=== PATIENT | female | born 1955 | race Caucasian/White ===

== ENCOUNTER 2019-11-05 16:10 | Inpatient (IN) | payer MEDICARE ==
[~2019-11-05] VITALS: Ht 162.6 cm; Wt 88.6 kg
[2019-11-05] MEDS ORDERED: AZULFIDINE500 MG PO (16:19)
[2019-11-05] MEDS ORDERED: FOLATE0.4 MG PO (16:20)
[2019-11-05] MEDS ORDERED: HYDROXYCHLOROQ200 MG PO (16:20)
[2019-11-05 17:59] LABS: BASOPHILS 0.2 % (0-2); EOSINOPHILS 0.7 % (0-7); HEMATOCRIT 39.3 % (36.0-48.0); HEMOGLOBIN 12.3 g/dL (12-16); IMMATURE GRANULOCYTES 0.3 % (0-5); LYMPHOCYTES 9.3 % (15-50); MCH 29.6 pg (26.0-34.0); MCHC 31.3 g/dL (31.0-37.0); MCV 94.7 fL (80.0-100.0); MEAN PLATELET VOLUME 10.8 fL (7.4-10.4); MONOCYTES 4.9 % (2-11); NEUTROPHILS 84.6 % (40-80); PLATELET COUNT 216 10x3/uL (130-400); RBC 4.15 10x6/uL (4.00-5.40); RDW 14.1 % (11.5-14.5); WBC 12.5 10x3/uL (4.8-10.8)
--- NOTE | 2019-11-05 18:02 | NUR ---
PT MOVED WITHOUT DIFFICULTY, LEFT ARM STABILIZED WITH BLANKETS, PAIN MED AND NAUSEA MEDS GIVEN PT TOLERATED WELL.
[2019-11-05 18:05] LABS: INR 0.99 (0.85-1.17)
[2019-11-05 18:08] LABS: ANION GAP 13.2 mmol/L (8-16); CALCIUM 8.9 mg/dL (8.5-10.1); CARBON DIOXIDE 24.7 mmol/L (21.0-32.0); CREATININE - SERUM 1.2 mg/dL (0.6-1.3); POTASSIUM - SERUM 3.9 mmol/L (3.5-5.1)
[2019-11-05 18:14] LABS: ALBUMIN 3.6 g/dL (3.4-5.0); BILIRUBIN - TOTAL 0.25 mg/dL (0.2-1.3); PROTEIN - SERUM 7.4 g/dL (6.4-8.2)
[2019-11-05 20:07] VITALS: BP 142/81
--- NOTE | 2019-11-05 21:53 | NUR ---
RECEIVED TO ROOM VIA [facility] FROM ER. ALERT ORIETED. SPLINT INTACT TO LEFT ARM WITH LO WRAP INTACT. RIGHT ARM UP ON PILLOW.. ORIENTED TO ROOM. CL IN REACH
[2019-11-06] VITALS (8 sets, daily range): BP systolic 137–183; BP diastolic 64–88; Ht 162.6 cm; Wt 88.6 kg
--- NOTE | 2019-11-06 03:55 | NUR ---
I have reviewed this patient and I concur with the Shift Assessment completed by the Licensed Practical Nurse today this shift.
[2019-11-06 06:15] LABS: BASOPHILS 0.1 % (0-2); EOSINOPHILS 0.4 % (0-7); HEMOGLOBIN 10.9 g/dL (12-16); IMMATURE GRANULOCYTES 0.2 % (0-5); LYMPHOCYTES 26.9 % (15-50); MCH 29.4 pg (26.0-34.0); MCHC 31.1 g/dL (31.0-37.0); MCV 94.3 fL (80.0-100.0); MEAN PLATELET VOLUME 10.6 fL (7.4-10.4); MONOCYTES 8.1 % (2-11); NEUTROPHILS 64.3 % (40-80); PLATELET COUNT 188 10x3/uL (130-400); RBC 3.71 10x6/uL (4.00-5.40); RDW 14.2 % (11.5-14.5)
[2019-11-06 06:21] LABS: WBC 8.1 10x3/uL (4.8-10.8)
[2019-11-06 06:30] LABS: INR 1.09 (0.85-1.17)
[2019-11-06 07:02] LABS: ANION GAP 12.8 mmol/L (8-16); CALCIUM 8.2 mg/dL (8.5-10.1); CARBON DIOXIDE 24.3 mmol/L (21.0-32.0); POTASSIUM - SERUM 4.1 mmol/L (3.5-5.1)
--- NOTE | 2019-11-06 07:59 | NUR ---
RESTING IN BED WITH EYES OPEN, ALERT AND ORIENTED. STATES SOME PAIN IS BECOMING TO COME BACK. IV LOCATED TO RIGHT HAND RUNNING NS @ 75ML. CURRENTLY RCVING 2L VIA NC. NO CURRENT S/S OF DISTRESS, WILL CONT TO MONITOR.
--- NOTE | 2019-11-06 15:11 | NUR ---
PATIENT REPREPPED AND DRAPE FOR SECOND HALF OF CASE ORIF OF WRIST
--- NOTE | 2019-11-06 22:30 | NUR ---
IV TO LFA INFILTRATED. DC'D WITH TIP INTACT. RESTARTED IV TO RIGHT HAND X 1 ATTEMP WITH 22G. TOLERATED WELL. SLING INTACT TO RIGHT ARM. DRESSING TO RIGHT SHOULDER INTACT AND CLEAN. LO WRAP TO LEFT WRIST INTACT WITHOUT DRAINAGE NOTED. CL IN REACH
[2019-11-07] VITALS (7 sets, daily range): BP systolic 141–162; BP diastolic 66–105
--- NOTE | 2019-11-07 01:45 | NUR ---
I have reviewed this patient and I concur with the Shift Assessment completed by the Licensed Practical Nurse today this shift.
[2019-11-07 03:54] LABS: BILIRUBIN NEGATIVE (NEGATIVE); GLUCOSE NEGATIVE (NEGATIVE); KETONE NEGATIVE (NEGATIVE); NITRITE POSITIVE (NEGATIVE); UROBILINOGEN NORMAL (NORMAL)
[2019-11-07 03:56] LABS: RED CELLS - URINE 0-5 /hpf (0-5); WHITE CELLS - URINE 0-5 /hpf (NEGATIVE)
[2019-11-07 04:01] LABS: BACTERIA FEW /hpf (NEGATIVE); EPITHELIAL CELLS 0-5 /hpf (0-5); HYALINE CAST 0-5 /lpf (NONE SEEN)
[2019-11-07 05:14] LABS: BASOPHILS 0.1 % (0-2); EOSINOPHILS 0.1 % (0-7); HEMATOCRIT 32.6 % (36.0-48.0); IMMATURE GRANULOCYTES 0.2 % (0-5); LYMPHOCYTES 20.3 % (15-50); MCH 29.2 pg (26.0-34.0); MCHC 30.7 g/dL (31.0-37.0); MEAN PLATELET VOLUME 10.3 fL (7.4-10.4); MONOCYTES 10.4 % (2-11); NEUTROPHILS 68.9 % (40-80); PLATELET COUNT 165 10x3/uL (130-400); RBC 3.43 10x6/uL (4.00-5.40); RDW 13.9 % (11.5-14.5); WBC 8.3 10x3/uL (4.8-10.8)
[2019-11-07 05:29] LABS: ANION GAP 10.8 mmol/L (8-16); CALCIUM 7.8 mg/dL (8.5-10.1); POTASSIUM - SERUM 3.8 mmol/L (3.5-5.1)
--- NOTE | 2019-11-07 07:00 | NUR ---
A&O, RESTING IN BED. NO C/O PAIN. NO S/S OF ACUTE DISTRESS NOTED. POD #1 ORIF RIGHT SHOULDER AND LEFT WRIST. DRESSING C/D/I TO SHOULDER AND SOFT CAST TO LEFT WRIST. SCDS ON. ON 2L O2, NC. IV TO RIGHT HAND, NS INFUSING @ 50ML/HR. SITE PATENT WITHOUT REDNESS OR SWELLING. WEARS GLASSES. DENIES ANY NEEDS AT THIS TIME. CALL LIGHT IN REACH. WILL CONTINUE TO MONITOR.
--- NOTE | 2019-11-07 09:36 | MORECARE ---
CASE MANAGEMENT DISCHARGE SUMMARY PATIENT: NEELAM OLIVEIRA UNIT: [id number] ADM DATE: 11/05/19 AGE: 64 : 54 SEX: F ROOM/BED: D.2210 AUTHOR: JUSTINA SIMON PHYSICIAN: REFERRING PHYSICIAN: RANDY PARSONS MD DATE OF SERVICE: 11/07/19 Discharge Plan Patient Name: NEELAM OLIVEIRA Facility: [facility]:[place] : 1955 Planned Disposition: Inpatient Rehab Anticipated Discharge Date: Discharge Date: Expected LOS: Initial Reviewer: [email or web address] Initial Review Date: 11/05/2019 Generated: 11/07/19 10:35 am Patient Name: NEELAM OLIVEIRA Page [id number] at 0936 All edits/amendments must be made on the electronic document DICTATION DATE: 11/07/19934 AUTOMOTIVE QUALITY ENGINEER: MAEGAN 11/07/1936 RPT#: [id number] DC DATE: STATUS: ADM IN [facility] [address] [place] [address] END OF REPORT
--- NOTE | 2019-11-07 09:50 | MORECARE ---
CASE MANAGEMENT DISCHARGE SUMMARY PATIENT: NEELAM OLIVEIRA UNIT: [id number] ADM DATE: 11/05/19 AGE: 64 : 53 SEX: F ROOM/BED: D.2210 AUTHOR: JUSTINA SIMON PHYSICIAN: REFERRING PHYSICIAN: RANDY PARSONS MD DATE OF SERVICE: 11/07/19 Discharge Plan Patient Name: NEELAM OLIVEIRA Facility: [facility]:[place] : 1955 Planned Disposition: Inpatient Rehab Anticipated Discharge Date: Discharge Date: Expected LOS: Initial Reviewer: [email or web address] Initial Review Date: 11/05/2019 Generated: 11/07/19 10:49 am Last DP export: 11/07/19 8:36 a Patient Name: NEELAM OLIVEIRA Page [id number] at 0950 All edits/amendments must be made on the electronic document DICTATION DATE: 11/07/19948 REPORTING DEVELOPER: MAEGAN 11/07/1950 RPT#: [id number] DC DATE: STATUS: ADM IN [facility] [address] [place] [address] END OF REPORT
--- NOTE | 2019-11-07 09:57 | MORECARE ---
CASE MANAGEMENT DISCHARGE SUMMARY PATIENT: NEELAM OLIVEIRA UNIT: [id number] ADM DATE: 11/05/19 AGE: 64 : 53 SEX: F ROOM/BED: D.2210 AUTHOR: JUSTINA SIMON PHYSICIAN: REFERRING PHYSICIAN: RANDY PARSONS MD DATE OF SERVICE: 11/07/19 Discharge Plan Patient Name: NEELAM OLIVEIRA Facility: [facility]:[place] : 1955 Planned Disposition: Inpatient Rehab Anticipated Discharge Date: Discharge Date: Expected LOS: Initial Reviewer: [email or web address] Initial Review Date: 11/05/2019 Generated: 11/07/19 10:57 am DCPIA - Discharge Planning Initial Assessment Updated by [email or web address]: Cassie Alcantar on 11/07/19 9:53 am * Is the patient Alert and Oriented? Yes * How many steps to enter\exit or inside your home? 0/0 * PCP BILL YANG * [facility] * Preadmission Environment Home with Family * ADLs Independent * Equipment None * List name and contact numbers for known caregivers / representatives who currently or will assist patient after discharge: YURY (SON) [phone] * Verbal permission to speak to the caregivers and representatives has been obtained from the patient. Yes * Community resources currently utilized None * Additional services required to return to the preadmission environment? Yes * Can the patient safely return to the preadmission environment? Yes * Has this patient been hospitalized within the prior 30 days at any hospital? No Last DP export: 11/07/19 8:50 a Patient Name: NEELAM OLIVEIRA Page [id number] at 0957 All edits/amendments must be made on the electronic document DICTATION DATE: 11/07/19956 DECK MATE: MAEGAN 11/07/19956 RPT#: [id number] DC DATE: STATUS: ADM IN [facility] [address] [place] [address] END OF REPORT
--- NOTE | 2019-11-07 10:12 | MORECARE ---
CASE MANAGEMENT DISCHARGE SUMMARY PATIENT: NEELAM OLIVEIRA UNIT: [id number] ADM DATE: 11/05/19 AGE: 64 : 53 SEX: F ROOM/BED: D.2210 AUTHOR: AURORADOC PHYSICIAN: REFERRING PHYSICIAN: RANDY PARSONS MD DATE OF SERVICE: 11/07/19 Discharge Plan Patient Name: NEELAM LOIVEIRA Facility: [facility]:[place] : 1955 Planned Disposition: Inpatient Rehab Anticipated Discharge Date: Discharge Date: Expected LOS: Initial Reviewer: [email or web address] Initial Review Date: 11/05/2019 Generated: 11/07/19 11:11 am Comments DCP- Discharge Planning Updated by [email or web address]: Cassie Alcantar on 11/07/19 9:[address] Patient Name: NEELAM OLIVEIRA Admission Status: ER Accout number: [id number] Admission Date: 11-05-2019 : 1955 Admission Diagnosis: Attending: RANDY PARSONS Current LOS: 2 Anticipated DC Date: Planned Disposition: Inpatient Rehab Primary Insurance: MEDICARE PART A ONLY Discharge Planning Comments: CM met with patient to complete initial dc planning assessment. CM educated patient on the CM role and verbal consent given by patient to complete assessment. CM verified patient's address, phone number, and emergency contact phone numbers. Patient lives at home with her . 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 States he has an aide that comes out to her house to assist her. Her son/ikthpowc-jz-afs is with him while she is in the hospital. Patient states she does not frequently fall, and is independent of all her ADL's. States she was walking in her back yard after the rain and slipped in the mud. CM anticipated rehab/pt after discharge. CM discussed availability of home health, rehab services, and medical equipment. Patient states she is willing to go to IP rehab at [facility], or [facility] with PT. States she can not go to OP PT, because she will not have a ride. MALCOML signed for [facility] IP rehab, and dm. Patient denied known discharge needs at this time. Transportation provider at discharge will be Gregory . CM will continue to follow and will assist as needed with dc plans/needs. Sumac Tanner: Cassie Alcantar MSN,RN,CM DCPIA - Discharge Planning Initial Assessment Updated by [email or web address]: Cassie Alcantar on 11/07/19 9:53 am * Is the patient Alert and Oriented? Yes * How many steps to enter\exit or inside your home? 0/0 * PCP BILL YANG * [facility] * Preadmission Environment Home with Family * ADLs Independent * Equipment None * List name and contact numbers for known caregivers / representatives who currently or will assist patient after discharge: GREGORY (SON) [phone] * Verbal permission to speak to the caregivers and representatives has been obtained from the patient. Yes * Community resources currently utilized None * Additional services required to return to the preadmission environment? Yes * Can the patient safely return to the preadmission environment? Yes * Has this patient been hospitalized within the prior 30 days at any hospital? No Coverage Notice Reviewer: [id number] - Cassie Alcantar Notice Issued Date-Time: 11/07/2019 9:27 Notice Type: Patient Choice Letter Notice Delivered To: Patient Relationship to Patient: Outdoor Emergency Care Technician Name: Delivery Method: HAND - Hand Delivered Ramila Days: Prior Verbal Notification: Recipient Understood Notice: Yes Recipient Signature: Yes Med Rec Note Co-signed by Attending: Coverage Notice Comment: MALCOLM signed for IP rehab, [facility] Last DP export: 11/07/19 8:57 a Patient Name: NEELAM OLIVEIRA Page [phone] at 1012 All edits/amendments must be made on the electronic document DICTATION DATE: 11/07/19 1011 TRACTOR SWEEPER DRIVER: MAEGAN 11/07/19 1011 RPT#: [id number] DC DATE: STATUS: ADM IN [facility] [address] [place] [address] END OF REPORT
--- NOTE | 2019-11-07 18:14 | NUR ---
A&O. NO C/O PAIN. NO S/S OF ACUTE DISTRESS NOTED. DENIES ANY NEEDS AT THIS TIME. CALL LIGHT IN REACH. WILL CONTINUE TO MONITOR.
--- NOTE | 2019-11-07 18:18 | NUR ---
I have reviewed this patient and I concur with the Shift Assessment completed by the Licensed Practical Nurse today this shift.
--- NOTE | 2019-11-07 20:28 | NUR ---
REC'D.CHGE OF SHIFT WALKING ROUNDS IN BED.HOB UP 40 DEGREES.DRSG RIGHT SHOULDER WITH SLING INTACT.POSTERIOR SPLINT WITH ACEWRAP DRSG INTACT ELEVATED ONPILLOW NAILBEDS PINK BLANCHES WITHOUT DIFFICULTY.GOOD RADIAL PULSE MINIMAL SWELLING. WILL CONTINUE TO MONITOR NEUROVASCULAR STATUS FOR ANY CHGES. AND FOLLOW CURRENT PLAN OF CARE.
[2019-11-08 00:50] VITALS: BP 166/82
[2019-11-08 06:48] VITALS: BP 160/72
--- NOTE | 2019-11-08 06:55 | NUR ---
ALERT AND ORIENTED. NO C/O PAIN. NO S/S OF ACUTE DISTRESS NOTED. POD #2 RIGHT SHOULDER, DRESSING C/D/I. SLING TO RIGHT ARM. LEFT WRIST, SOFT CAST C/D/I. ON 2L O2, NC. WEARS GLASSES. IV TO RIGHT HAND, D5 1/2 NS INFUSING. DENIES ANY NEEDS AT THIS TIME. CALL LIGHT IN REACH. WILL CONTINUE TO MONITOR.
[2019-11-08 07:32] LABS: BASOPHILS 0.1 % (0-2); EOSINOPHILS 2.4 % (0-7); HEMATOCRIT 32.3 % (36.0-48.0); IMMATURE GRANULOCYTES 0.3 % (0-5); MCH 29.4 pg (26.0-34.0); MEAN PLATELET VOLUME 10.4 fL (7.4-10.4); MONOCYTES 9.8 % (2-11); NEUTROPHILS 60.4 % (40-80); PLATELET COUNT 150 10x3/uL (130-400); RDW 14.1 % (11.5-14.5); WBC 7.4 10x3/uL (4.8-10.8)
[2019-11-08 07:33] LABS: ANION GAP 10.7 mmol/L (8-16); CALCIUM 7.9 mg/dL (8.5-10.1); CARBON DIOXIDE 26.3 mmol/L (21.0-32.0); CREATININE - SERUM 1.1 mg/dL (0.6-1.3)
[2019-11-08 08:24] VITALS: BP 182/89
--- NOTE | 2019-11-08 11:16 | OP ---
PATIENT NAME: NEELAM OLIVEIRA MEDICAL RECORD: [id number] :53 LOCATION:D.MS [address]10 ADMISSION DATE:11/05/19 SURGEON: EKYA CORDOVA MD DATE OF OPERATION: 11/06/2019 PREOPERATIVE DIAGNOSES: 1. Fracture dislocation of the right shoulder. 2. 100% fracture displacement of the left wrist. 3. Early carpal tunnel syndrome. POSTOPERATIVE DIAGNOSES: 1. Fracture dislocation of the right shoulder. 2. 100% fracture displacement of the left wrist. 3. Early carpal tunnel syndrome. PROCEDURES: 1. Open reduction internal fixation of the right shoulder. 2. Open reduction internal fixation of left wrist. 3. Carpal tunnel release in its entirety. SURGEON: Keya Cordova MD MIXER OPERATOR HOT METAL: None. INTRAOPERATIVE COMPLICATIONS: None. SUMMARY OF PATHOLOGIC FINDINGS: The patient did have a fractured shoulder. In the pre CT scans, the shoulder was dislocated; however, at the time of the CT scan with 3D reconstructions, the shoulder had relocated nicely. Greater tuberosity and lesser tuberosity fragments were also associated with the humeral head component 3-part although displacement not more than 3 mm in any plane [place] proximal humeral VariAx plate was used. After this shoulder was fixed, the left wrist was then approached under separate complete prep and drape. OPERATIVE SUMMARY IN DETAIL: After obtaining the appropriate preoperative orthopedic surgery consent as well as anesthetic consultation evaluation, and clearance, the patient was placed in supine position. After general laryngeal mask airway was administered, the patient was placed in the beach chair position. All pressure points were well padded. She was held firmly to the operating table using the vacuum pack suction system. Right upper extremity and shoulder were then prepped and draped in routine sterile fashion. The arm was held in the Trimano arm holding device. Deltopectoral incision was taken down. The deltoid was then reflected laterally using the brown retractor. Conjoined tendon was gently retracted medially using the PCL retractor. Fragments were then identified and reduced manually with fluoroscopic guidance. Proximal humeral plate was then placed. Combination of both locking and nonlocking screws resulted in anatomic christianity as seen on AP and lateral planes. Wound was copiously irrigated and closed. Deltopectoral incision was closed with #1 Vicryl followed by 2-0 Vicryl and skin bianca. Sterile dressings were applied. At this point and the patient having done well, the patient was then returned to a supine position. The patient's left upper extremity were then prepped and draped in routine sterile fashion. Then, using an Esmarch as a tourniquet, the arm was elevated, exsanguinated, and the tourniquet was left in place. OPERATIVE REPORT [id number] NEELAM OLIVEIRA Curvilinear incision in keeping with Antony's volar approach was utilized for both the carpal tunnel release. Curvilinear incision was made into the mid palmar crease in keeping with Antony's volar approach. This was taken down of the flexor carpal ulnaris. Gentle dissection was carried down to release the transverse carpal ligament in its entirety under direct visualization. The median nerve and flexor tendons were retracted. Fracture was exposed. After reduction of the fracture and under direct fluoroscopic visualization, Dom VariAx plate was then put into place and provisionally pinned. Serial and sequential drill and fill were done using combination of both locking and nonlocking plates resulting in anatomic christianity of the distal radius, both radial angle of inclination, radial height as well as volar tilt. Having completed this, the wound was then copiously irrigated and closed with 2-0 Vicryl followed by 4-0 Prolene in a running fashion. Sterile dressings were applied. The patient was awakened and taken to the recovery room in stable condition. All final needle and sponge counts were correct. TRANSINT:[id number] Voice Confirmation ID: [id number] DOCUMENT ID: [id number] ART MOSS, KEYA ALTAMIRANO at 1116 CC: [id number] DICTATION DATE: 11/07/19 1633 SUPERVISOR BRIDGES AND BUILDINGS: 11/07/19 2351 ADM IN [facility] [address] [place] [address]
[2019-11-08] MEDS ORDERED: PERCOCET 10-321 EAC1 PO (13:32)
[2019-11-08] MEDS ORDERED: HYDROCODON-ACE1 EA10 PO (13:32)
[2019-11-08] MEDS ORDERED: COLACE100 MG PO (13:32)
[2019-11-08] MEDS ORDERED: BYSTOLIC2.5 MG PO (13:32)
[2019-11-08] MEDS ORDERED: PROTONIX40 MG PO (13:33)
--- NOTE | 2019-11-08 14:04 | MORECARE ---
CASE MANAGEMENT DISCHARGE SUMMARY PATIENT: NEELAM OLIVEIRA UNIT: [id number] ADM DATE: 11/05/19 AGE: 64 : 53 SEX: F ROOM/BED: D.2210 AUTHOR: AURORA,DOC PHYSICIAN: REFERRING PHYSICIAN: RANDY PARSONS MD DATE OF SERVICE: 11/08/19 Discharge Plan Patient Name: NEELAM OLIVEIRA Facility: [facility]:[place] : 1955 Planned Disposition: Inpatient Rehab Anticipated Discharge Date: Discharge Date: Expected LOS: Initial Reviewer: [email or web address] Initial Review Date: 11/05/2019 Generated: 11/08/19 3:03 pm Comments DCP- Discharge Planning Updated by [email or web address]: Lena Rey on 11/08/19 1:[address] PATIENT WILL BE DISCHARGING TO INPATIENT REHAB TODAY, IMM SERVED AND EXPLAINED. DCP- Discharge Planning Updated by [email or web address]: Cassie Alcantar on 11/07/19 9:[address] Patient Name: NEELAM OLIVEIRA Admission Status: ER Accout number: [id number] Admission Date: 11-05-2019 : 1955 Admission Diagnosis: Attending: RANDY PARSONS Current LOS: 2 Anticipated DC Date: Planned Disposition: Inpatient Rehab Primary Insurance: MEDICARE PART A ONLY Discharge Planning Comments: CM met with patient to complete initial dc planning assessment. CM educated patient on the CM role and verbal consent given by patient to complete assessment. CM verified patient's address, phone number, and emergency contact phone numbers. Patient lives at home with her . 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 States he has an aide that comes out to her house to assist her. Her son/gywypauc-do-fcq is with him while she is in the hospital. Patient states she does not frequently fall, and is independent of all her ADL's. States she was walking in her back yard after the rain and slipped in the mud. CM anticipated rehab/pt after discharge. CM discussed availability of home health, rehab services, and medical equipment. Patient states she is willing to go to rehab at [facility], or [facility] with PT. States she can not go to OP PT, because she will not have a ride. MALCOLM signed for [facility] IP rehab, and dm. Patient denied known discharge needs at this time. Transportation provider at discharge will be Gregory . CM will continue to follow and will assist as needed with dc plans/needs. Layup Worker: Cassie Alcantar MSN,RN,CM DCPIA - Discharge Planning Initial Assessment Updated by [email or web address]: Cassie Alcantar on 11/07/19 9:53 am * Is the patient Alert and Oriented? Yes * How many steps to enter\exit or inside your home? 0/0 * PCP BILL YANG * [facility] * Preadmission Environment Home with Family * ADLs Independent * Equipment None * List name and contact numbers for known caregivers / representatives who currently or will assist patient after discharge: GREGORY (SON) [phone] * Verbal permission to speak to the caregivers and representatives has been obtained from the patient. Yes * Community resources currently utilized None * Additional services required to return to the preadmission environment? Yes * Can the patient safely return to the preadmission environment? Yes * Has this patient been hospitalized within the prior 30 days at any hospital? No Coverage Notice Reviewer: [id number] - Cassie Alcantar Notice Issued Date-Time: 11/07/2019 9:27 Notice Type: Patient Choice Letter Notice Delivered To: Patient Relationship to Patient: Side Laster Tack Name: Delivery Method: HAND - Hand Delivered Ramila Days: Prior Verbal Notification: Recipient Understood Notice: Yes Recipient Signature: Yes Med Rec Note Co-signed by Attending: Coverage Notice Comment: MALCOLM signed for IP rehab, [facility] Reviewer: [id number] - Lena Rey Notice Issued Date-Time: 11/08/2019 14:00 Notice Type: IM Discharge Notice Notice Delivered To: Patient Relationship to Patient: Side Laster Tack Name: Delivery Method: HAND - Hand Delivered Ramila Days: Prior Verbal Notification: Recipient Understood Notice: Yes Recipient Signature: Yes Med Rec Note Co-signed by Attending: Coverage Notice Comment: Last DP export: 11/07/19 9:12 a Patient Name: NEELAM OLIVEIRA Page [phone] at 1404 All edits/amendments must be made on the electronic document DICTATION DATE: 11/08/191403 WILDLIFE BIOLOGY INTERNSHIP: MAEGAN 11/08/191403 RPT#: [id number] DC DATE: STATUS: ADM IN [facility] [address] [place] [address] END OF REPORT
--- NOTE | 2019-11-08 18:45 | NUR ---
DISCHARGED PATIENT TO INPATIENT REHAB. DISCONTINUED IV, CATHETER TIP INTACT. WENT OVER DISCHARGE INSTRUCTIONS WITH PATIENT, VERBALIZED UNDERSTANDING OF INSTRUCTIONS. DENIES ANYTHING FURTHER. CALLED REPORT TO YANCY.
--- NOTE | 2019-11-09 08:38 | MORECARE ---
CASE MANAGEMENT DISCHARGE SUMMARY PATIENT: NEELAM OLIVEIRA UNIT: [id number] ADM DATE: 11/05/19 AGE: 64 : 53 SEX: F ROOM/BED: D.2210 AUTHOR: AURORA,DOC PHYSICIAN: REFERRING PHYSICIAN: RANDY PARSONS MD DATE OF SERVICE: 11/09/19 Discharge Plan Patient Name: NEELAM OLIVEIRA Facility: [facility]:[place] : 1955 Planned Disposition: Inpatient Rehab Anticipated Discharge Date: Discharge Date: 11/08/2019 Expected LOS: Initial Reviewer: [email or web address] Initial Review Date: 11/05/2019 Generated: 11/09/19 9:37 am Comments DCP- Discharge Planning Updated by [email or web address]: Lena Rey on 11/08/19 1:[address] PATIENT WILL BE DISCHARGING TO INPATIENT REHAB TODAY, IMM SERVED AND EXPLAINED. DCP- Discharge Planning Updated by [email or web address]: Cassie Alcantar on 11/07/19 9:[address] Patient Name: NEELAM OLIVEIRA Admission Status: ER Accout number: [id number] Admission Date: 11-05-2019 : 1955 Admission Diagnosis: Attending: RANDY PARSONS Current LOS: 2 Anticipated DC Date: Planned Disposition: Inpatient Rehab Primary Insurance: MEDICARE PART A ONLY Discharge Planning Comments: CM met with patient to complete initial dc planning assessment. CM educated patient on the CM role and verbal consent given by patient to complete assessment. CM verified patient's address, phone number, and emergency contact phone numbers. Patient lives at home with her . 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 States he has an aide that comes out to her house to assist her. Her son/yyztrtdc-ex-edo is with him while she is in the hospital. Patient states she does not frequently fall, and is independent of all her ADL's. States she was walking in her back yard after the rain and slipped in the mud. CM anticipated rehab/pt after discharge. CM discussed availability of home health, rehab services, and medical equipment. Patient states she is willing to go to IP rehab at [facility], or [facility] with PT. States she can not go to OP PT, because she will not have a ride. MALCOLM signed for [facility] IP rehab, and [facility]. Patient denied known discharge needs at this time. Transportation provider at discharge will be Gregory . CM will continue to follow and will assist as needed with dc plans/needs. Service Rig Operator: Cassie Alcantar MSN,RN,CM DCPIA - Discharge Planning Initial Assessment Updated by [email or web address]: Cassie Alcantar on 11/07/19 9:53 am * Is the patient Alert and Oriented? Yes * How many steps to enter\exit or inside your home? 0/0 * PCP BILL YANG * [facility] * Preadmission Environment Home with Family * ADLs Independent * Equipment None * List name and contact numbers for known caregivers / representatives who currently or will assist patient after discharge: GREGORY (SON) [phone] * Verbal permission to speak to the caregivers and representatives has been obtained from the patient. Yes * Community resources currently utilized None * Additional services required to return to the preadmission environment? Yes * Can the patient safely return to the preadmission environment? Yes * Has this patient been hospitalized within the prior 30 days at any hospital? No Coverage Notice Reviewer: [id number] - Cassie Alcantar Notice Issued Date-Time: 11/07/2019 9:27 Notice Type: Patient Choice Letter Notice Delivered To: Patient Relationship to Patient: Mail Order Sorter Name: Delivery Method: HAND - Hand Delivered Ramila Days: Prior Verbal Notification: Recipient Understood Notice: Yes Recipient Signature: Yes Med Rec Note Co-signed by Attending: Coverage Notice Comment: MALCOLM signed for IP rehab, [facility] Reviewer: [id number] - Lena Rey Notice Issued Date-Time: 11/08/2019 14:00 Notice Type: IM Discharge Notice Notice Delivered To: Patient Relationship to Patient: Mail Order Sorter Name: Delivery Method: HAND - Hand Delivered Ramila Days: Prior Verbal Notification: Recipient Understood Notice: Yes Recipient Signature: Yes Med Rec Note Co-signed by Attending: Coverage Notice Comment: Last DP export: 11/08/19 1:04 p Patient Name: NEELAM OLIVEIRA Page 35020 at 0838 All edits/amendments must be made on the electronic document DICTATION DATE: 11/09/19837 RESEARCH ANALYST: MAEGAN 11/09/1939 RPT#: [id number] DC DATE:11/08/19 STATUS: DIS IN [facility] [address] [facility] [place] [address] END OF REPORT
== END 2019-11-08 18:46 | DRG 493 ==
LOC: D.ER 16:10 → D.MS 19:08
PROVIDERS: Family Medicine; Orthopaedic Surgery; ADMIT Internal Medicine Nephrology; ATTEND Internal Medicine Nephrology
PROC: 01N50ZZ Release Median Nerve, Open Approach (ICD-10-PCS; 2019-11-06)
PROC: 0PSF04Z Reposition Right Humeral Shaft with Internal Fixation Device, Open Approach (ICD-10-PCS; principal; 2019-11-06 12:23)
PROC: 0PSJ04Z Reposition Left Radius with Internal Fixation Device, Open Approach (ICD-10-PCS; 2019-11-06 12:23)
DX: S42.231A 3-part fracture of surgical neck of right humerus, initial encounter for closed fracture (principal); S52.532A Colles' fracture of left radius, initial encounter for closed fracture; S52.612A Displaced fracture of left ulna styloid process, initial encounter for closed fracture; M06.9 Rheumatoid arthritis, unspecified; Z87.891 Personal history of nicotine dependence; W19.XXXA Unspecified fall, initial encounter; D64.9 Anemia, unspecified; I10 Essential (primary) hypertension; G56.02 Carpal tunnel syndrome, left upper limb; R00.0 Tachycardia, unspecified

== ENCOUNTER 2019-11-08 18:30 | Inpatient (IN) | payer MEDICARE ==
[~2019-11-08] VITALS: Ht 162.6 cm; Wt 88.5 kg
[~2019-11-08 18:30] MED LIST: AZULFIDINE500 MG PO; BYSTOLIC2.5 MG PO; COLACE100 MG PO; FOLATE0.4 MG PO; HYDROCODON-ACE1 EA10 PO; HYDROXYCHLOROQ200 MG PO; PERCOCET 10-321 EAC1 PO; PROTONIX40 MG PO
--- NOTE | 2019-11-08 18:40 | NUR ---
ON FLOOR FROM ACUTE/WC TO ROOM 1116;ORIENTED TO ROOM AND SURROUNDINGS.CL IN REACH.
--- NOTE | 2019-11-08 19:35 | NUR ---
NEW PT, RT SHOULDER ORIF NWB, LFT WRIST ORIF NWB, PLEASANT, A&O X3, NO NEEDS NOTED, FLUIDS/CALL LIGHT WITHIN REACH
--- NOTE | 2019-11-08 23:57 | NUR ---
PT C/O RIGHT SHOULDER PAIN, PRN PAIN MED GIVEN
[2019-11-09 00:33] VITALS: BP 162/73; BMI 33.5
[2019-11-09 07:02] LABS: BASOPHILS 0.1 % (0-2); EOSINOPHILS 3.8 % (0-7); HEMATOCRIT 31.3 % (36.0-48.0); HEMOGLOBIN 9.8 g/dL (12-16); IMMATURE GRANULOCYTES 0.1 % (0-5); LYMPHOCYTES 21.9 % (15-50); MCH 29.5 pg (26.0-34.0); MCHC 31.3 g/dL (31.0-37.0); MCV 94.3 fL (80.0-100.0); MEAN PLATELET VOLUME 10.3 fL (7.4-10.4); MONOCYTES 8.1 % (2-11); PLATELET COUNT 166 10x3/uL (130-400); RBC 3.32 10x6/uL (4.00-5.40); RDW 14.1 % (11.5-14.5); WBC 7.5 10x3/uL (4.8-10.8)
[2019-11-09 07:12] LABS: ANION GAP 10.2 mmol/L (8-16); CALCIUM 8.1 mg/dL (8.5-10.1); CARBON DIOXIDE 26.5 mmol/L (21.0-32.0); POTASSIUM - SERUM 3.7 mmol/L (3.5-5.1)
[2019-11-09 07:34] VITALS: BP 172/78
--- NOTE | 2019-11-09 10:26 | NUR ---
Patient admitted to the ARU on 11/08/19 from the acute floor. She lives with her spouse,but he is ill and unable to assist her at home. She had been independent with ADL's and mobility and has no DME. She has choosen [facility] when discharged. Her PCP is Dr Ángela Delong. CM will assist with DME and discharge plans when appropriate. Kareen Connors RN Clinical Liaison, Rehab
[2019-11-09 13:18] VITALS: Ht 162.6 cm; Wt 88.5 kg
[2019-11-09 19:43] VITALS: BP 158/81
--- NOTE | 2019-11-09 20:31 | NUR ---
PT IN BED, DAUGHTER AT BEDSIDE, NO NEEDS NOTED, FLUIDS/CALL LIGHT WITHIN REACH
[2019-11-10 08:14] VITALS: BP 152/77
--- NOTE | 2019-11-10 12:53 | NUR ---
SITTING UP IN WC IN ROOM FINISHING HER LUNCH. RUE IN SLING, HAMLET HAS SOFT CAST WITH LO WRAP AROUND ARM. SHE DOES MUCH FOR HERSELF POSSIBLE. CURRENTLY DENIES INCREASED PAIN TO BUE. CALL LIGHT IN REACH
--- NOTE | 2019-11-10 19:33 | NUR ---
PATIENT RECEIVED SITTING UP IN W/C. ASSESSMENT & VITAL SIGNS DONE. NO C/O PAIN OR DISTRESS. DRESSINGS C/D/I. CALL LIGHT WITHIN REACH. WILL CONTINUE TO MONITOR.
[2019-11-10 21:53] VITALS: BP 192/98
--- NOTE | 2019-11-11 01:51 | NUR ---
PATIENT EYES CLOSED. RESPIRATIONS 18 & EVEN. BED LOW. CALL LIGHT WITHIN REACH. WILL CONTINUE TO MONITOR.
--- NOTE | 2019-11-11 02:20 | NUR ---
I have reviewed this patient and I concur with the Shift Assessment completed by the Licensed Practical Nurse today this shift.
[2019-11-11 06:04] LABS: BASOPHILS 0.3 % (0-2); EOSINOPHILS 4.5 % (0-7); HEMATOCRIT 31.4 % (36.0-48.0); HEMOGLOBIN 9.8 g/dL (12-16); IMMATURE GRANULOCYTES 0.3 % (0-5); MCH 29.2 pg (26.0-34.0); MCHC 31.2 g/dL (31.0-37.0); MCV 93.5 fL (80.0-100.0); MEAN PLATELET VOLUME 10.3 fL (7.4-10.4); MONOCYTES 9.2 % (2-11); NEUTROPHILS 61.7 % (40-80); RBC 3.36 10x6/uL (4.00-5.40); RDW 13.8 % (11.5-14.5); WBC 7.3 10x3/uL (4.8-10.8)
[2019-11-11 06:10] LABS: ANION GAP 11.7 mmol/L (8-16); CALCIUM 8.5 mg/dL (8.5-10.1); CARBON DIOXIDE 25.2 mmol/L (21.0-32.0); CREATININE - SERUM 1.1 mg/dL (0.6-1.3); POTASSIUM - SERUM 3.9 mmol/L (3.5-5.1)
[2019-11-11 06:26] LABS: PLATELET COUNT 212 10x3/uL (130-400)
[2019-11-11 08:11] VITALS: BP 156/75
--- NOTE | 2019-11-11 16:21 | NUR ---
RESTING QUIETLY IN BED. EYES CLOSED. NO S/S DISTRESS. CALL LIGHT IN REACH. BED IN LOWEST POSITION. SIDE RAILS UP X2. LUE WRAPED IN SOFT CAST AND LO WRAP. SHOULDER ON RIGHT SIDE IS IN SLING.
[2019-11-11 19:41] VITALS: BP 136/66
--- NOTE | 2019-11-11 19:50 | NUR ---
AWAKE AND ALERT. RESTING IN BED WITH RESPIRAITONS UNLABORED. LEFT WRIST CAST INTACT. RIGHT SHOULDER SLING IN PLACE. NO ACUTE DISTRESS NOTED. CALL LIGHT IN REACH.
--- NOTE | 2019-11-12 01:30 | NUR ---
SLEEPING WITH RESPIRATIONS UNLABORED. NO DISTRESS NOTED.
--- NOTE | 2019-11-12 05:35 | NUR ---
QUIET HOURS. NO ACUTE CHANGES IN CONDITION THIS SHIFT. RESTING IN BED WITH RESPIRATIONS UNLABORED. NO DISTRESS NOTED.
[2019-11-12 08:00] VITALS: BP 185/90
--- NOTE | 2019-11-12 08:00 | NUR ---
SHIFT ASSMT COMPLETED.MEAL GIVEN.
--- NOTE | 2019-11-12 12:00 | NUR ---
SITTING UP EATING LUNCH.
--- NOTE | 2019-11-12 19:44 | NUR ---
PATIENT RECEIVED SITTING UP IN BED. VISITOR IN ROOM. ASSESSMENT & VITAL SIGNS DONE. NO C/O PAIN OR DISTRESS. BED LOW. CALL LIGHT WITHIN REACH. WILL CONTINUE TO MONITOR.
[2019-11-12 20:39] VITALS: BP 140/65
--- NOTE | 2019-11-13 01:34 | NUR ---
I have reviewed this patient and I concur with the Shift Assessment completed by the Licensed Practical Nurse today this shift.
--- NOTE | 2019-11-13 03:30 | NUR ---
PATIENT EYES CLOSED. RESPIRATIONS 18 & EVEN. BED LOW. CALL LIGHT WITHINR EACH. WILL CONTINUE TO MONITOR.
--- NOTE | 2019-11-13 08:00 | NUR ---
SHIFT ASSMT COMPLETED.BREAKFAST GIVEN.CL IN REACH.
[2019-11-13 08:48] VITALS: BP 158/76
--- NOTE | 2019-11-13 16:00 | NUR ---
SITTING UP IN BED.DENIES NEEDS.
[2019-11-13 20:00] VITALS: BP 158/77
--- NOTE | 2019-11-13 20:05 | NUR ---
PATIENT RECEIVED SITTING UP IN BED WATCHING TV. ASSESSMENT & VITAL SIGNS DONE. BED LOW. CALL LIGHT WITHIN REACH. WILL CONTINUE TO MONITOR.
--- NOTE | 2019-11-14 01:31 | NUR ---
I have reviewed this patient and I concur with the Shift Assessment completed by the Licensed Practical Nurse today this shift.
--- NOTE | 2019-11-14 06:03 | NUR ---
PATIENT AWAKE WATCHING TV. BED LOW. CALL LIGHT WITHIN REACH. WILL CONTINUE TO MONITOR.
[2019-11-14 06:11] LABS: BASOPHILS 0.3 % (0-2); EOSINOPHILS 4.5 % (0-7); HEMATOCRIT 31.5 % (36.0-48.0); HEMOGLOBIN 9.7 g/dL (12-16); IMMATURE GRANULOCYTES 0.3 % (0-5); LYMPHOCYTES 34.2 % (15-50); MCHC 30.8 g/dL (31.0-37.0); MCV 94.3 fL (80.0-100.0); MEAN PLATELET VOLUME 10.5 fL (7.4-10.4); NEUTROPHILS 51.7 % (40-80); PLATELET COUNT 237 10x3/uL (130-400); RBC 3.34 10x6/uL (4.00-5.40); RDW 14.1 % (11.5-14.5); WBC 6.6 10x3/uL (4.8-10.8)
[2019-11-14 06:26] LABS: ANION GAP 9.5 mmol/L (8-16); CALCIUM 8.2 mg/dL (8.5-10.1); CREATININE - SERUM 0.9 mg/dL (0.6-1.3); POTASSIUM - SERUM 4.5 mmol/L (3.5-5.1)
[2019-11-14 08:00] VITALS: BP 128/77
--- NOTE | 2019-11-14 08:25 | RHP ---
PATIENT: NEELAM OLIVEIRA MEDICAL RECORD: [id number] ACCOUNT: [id number] [id number] : 53 ADMISSION DATE: 11/08/19 REHABILITATION HISTORY AND PHYSICAL EXAMINATION POST ADMISSION PHYSICIAN EXAMINATION ADMITTING DIAGNOSES: Fracture dislocation of the right shoulder with displacement of the left wrist. HISTORY OF PRESENT ILLNESS: The patient is a 64-year-old female patient who presented to the ED via EMS after a fall due to slipping in some mud by a pond with complaints of right shoulder and wrist pain. She could not move her right shoulder, both her wrist and her shoulder showed an obvious deformities. She has got a history of rheumatoid arthritis. Orthopedic surgery followed her. She underwent surgery on 11/05/2019 and 11/06/2019 including an open reduction and internal fixation of her right shoulder and ORIF of her left wrist. She had carpal tunnel release. She has had cardiology consult during her stay due to acute onset of sinus tachycardia. She had an echo done. She has had a cardiac medication added during her stay. She has been working with PT. She has been monitored closely on telemetry for tachycardia and started on a beta-delores per cardiology. They are monitoring her O2 sat. She is requiring some supplemental O2. She is on electrolyte protocol, weakness, balance deficits, decreased activity tolerance, decreased quality of life, decreased strength, limited safety awareness. She is at risk for falls, cues for equipment. She has got low endurance, inability to care for self. These are all barriers to her discharge home. She lives at home with her spouse, has stage IV prostate cancer and she cares for him. She was independent with ADLs and mobility prior to this. She plans to return home as close to her prior level of functioning or better. She currently is set for max assist for ADLs, mod assist for mobility. She and her family would like for her to get back to her prior level of functioning. COMORBIDITIES: Include weakness status post fall, displaced and impacted right humeral surgical neck fracture, comminuted and displaced Colles fracture of the left radius, displaced styloid fracture, normocytic anemia, rheumatoid arthritis, hypertension, tachycardia, and carpal tunnel syndrome. PAST MEDICAL HISTORY: Significant for rheumatoid arthritis, got a history of tobacco use in the past. PAST SURGICAL HISTORY: Includes gallbladder surgery. ALLERGIES: No drug allergies. CURRENT MEDICATIONS: Include Bystolic 2.5 mg daily, folic acid 0.4 mg daily, Protonix 40 mg daily. She is on Colace 100 mg b.i.d., sulfasalazine 1000 mg b.i.d., Plaquenil 200 mg b.i.d., and Ballard 10/325 one tab q.4-6 hours p.r.n. pain. HABITS: Does have a history of tobacco use. FAMILY HISTORY: Noncontributory. SOCIAL HISTORY: The patient hopes to return back home and get back to her prior level of functioning. HISTORY AND PHYSICAL [id number] NEELAM OLIVEIRA REVIEW OF SYSTEMS: GENERAL: Does complain of weakness and fatigue. HEENT: Denies cold, cough, or congestion. CARDIOVASCULAR: He denies any chest pain. PHYSICAL EXAMINATION: VITAL SIGNS: Stable, afebrile. GENERAL: An elderly female, in no acute distress, alert upon exam. HEENT: Normocephalic and atraumatic. Mucosa moist. NECK: Supple. No lymphadenopathy. LUNGS: Clear at this time. No wheezing or rales. HEART: Regular rate and rhythm. She is not having any murmurs, rubs or gallops. She is not tachycardic. ABDOMEN: Soft, benign, and nondistended. Positive bowel sounds times 4. EXTREMITIES: Does have noted post-surgical areas to her wrist and shoulder that appeared normal. NEUROLOGIC: She does have some proximal muscle strength weakness and deformity of her joints that are causing some longer than expected rehab. LABORATORY DATA: White count 7.5, H&H of 9.8 and 31.3 and platelet count is noted to be 166. Her sodium is 140, potassium 3.7, BUN and creatinine of 12 and 1.0 and blood sugar is noted to be 99. ASSESSMENT: This is a 64-year-old female patient admitted to rehab with a working diagnosis of orthopedic complaints secondary to shoulder and wrist fracture. The patient has potential to make improvement. We instituted the following multidisciplinary therapies including, but not limited to physical, occupational, respiratory, speech, nutritional services, prosthetics and orthotics. Given her complex medical condition and risks for more complications, rehabilitation services cannot be provided at a low level of care such a skilled nurse facility. PLAN: [facility] to include the following disciplines; A. Physical therapy to improve gait, all transfer skills and bed mobility to a modified independent level. B. Occupational therapy to improve activities of daily living. C. Case management to assist with discharge planning and placement options. D. Nutrition to assist with nutritional needs. E. Rehabilitation nursing to assist in monitoring the patient's underlying medical conditions and to assist with any type of bowel or bladder management. 2. The patient's current medication and medical care will be continued. 3. The patient will be placed on standard fall precautions. 4. The patient's estimated length of stay is approximately 7-10 days. 5. We will discuss during care team staff meeting today and we will continue on home medications where appropriate and we will see again in the a.m. TRANSINT:[id number] Voice Confirmation ID: [id number] DOCUMENT ID: [id number] ALESHIA notes whether there has been none or any medical/functional change since admission: - No change since preadmission screen. HISTORY AND PHYSICAL [id number] NEELAM OLIVEIRA attests patient continues to be appropriate for IRF: - Continues to be appropriate. 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
[2019-11-14 08:37] VITALS: BP 103/35
--- NOTE | 2019-11-14 12:45 | NUR ---
SITTING IN WC IN FOOM FINISHING LUNCH. RUE IN SLING, LUE IN SOFT CAST WITH LO WRAP. DENIES NEEDS OR C/O. CALL LIGHT IN REACH
--- NOTE | 2019-11-14 16:08 | NUR ---
Nutrition Follow-up: Diet: Regular PO intake: 50% x 3 Last BM: 11/13/19. Wt: 195# (11/09/19) Meds and labs reviewed. Recommend continue current diet. Encourage PO intake. May consider adding oral nutrition supplement if PO intake does not improve. RD following.
--- NOTE | 2019-11-14 20:00 | NUR ---
PT IS RESTING QUIETLY IN BED WITH EYES OPEN. ALERT AND ORIENTED X 3. PT EXCITED TO BE GOING HOME TOMMORROW. RIGHT ARM SLING IS ON AND INTACT. LEFT WRIST SOFT CAST IS INTACT. SR'S ARE UP X 2 IN BED. CALL LIGHT AND BEDSIDE TABLE ARE WITHIN EASY REACH.
[2019-11-14 21:28] VITALS: BP 156/79
--- NOTE | 2019-11-14 23:43 | NUR ---
PT IS RESTING QUIETLY IN BED WITH EYES CLOSED. RESPS ARE EVEN AND UNLABORED. NO ACUTE DISTRESS NOTED.
--- NOTE | 2019-11-15 01:24 | NUR ---
I have reviewed this patient and I concur with the Shift Assessment completed by the Licensed Practical Nurse today this shift.
--- NOTE | 2019-11-15 03:00 | NUR ---
PT IS RESTING QUIETLY IN BED WITH EYES CLOSED. NO DISTRESS NOTED.
--- NOTE | 2019-11-15 05:59 | NUR ---
PT RESTING IN BED WITH EYES CLOSED.
[2019-11-15 08:32] VITALS: BP 154/66
[2019-11-15] MEDS ORDERED: HYDROCODON-ACE1 EA10 PO (08:52)
--- NOTE | 2019-11-15 10:13 | NUR ---
PATIENT DISCHARGING HOME TODAY WITH FAMILY. [facility] AT HOME.NO NEW DME NEEDED AT THIS TIME. PTAIENT TO CALL FOR AN APPOINTMENT WITH DR. ART BHATTI 11/22/19 @ 2:15. MALCOLM SIGNED, IMM SERVED AND EXPLAINED. ONE GIVEN TO PATIENT AND ONE FILED IN CHART. DISCHARGE INSTRUCTIONS FAXED TO [facility] PCP AND REVIEWED WITH PATIENT PER PRIMARY NURSE. NO COMPARE DATA REVIEWED PATIENT SPOUSE IS A [facility].
--- NOTE | 2019-11-15 11:50 | NUR ---
DC HOME WITH FAMILY. DENCLINED TO HAVE ANY MEDS CALLED IN STATING SHE HAS ALL THEM AT HOME. REVIEWED MEDS. DC PLAN AND FOLLOW UP APPTS. LEFT FLOOR IN WC. RUE IN SLING LUE STILL HAS SOFT CAST AND LO WRAP COVERING WRIST.
== END 2019-11-15 13:18 | disposition home health service (06) | DRG 561 ==
LOC: D.REHAB 18:30
PROVIDERS: ADMIT Emergency Medicine; ATTEND Emergency Medicine
DX: S42.211D Unspecified displaced fracture of surgical neck of right humerus, subsequent encounter for fracture with routine healing (principal); S52.532D Colles' fracture of left radius, subsequent encounter for closed fracture with routine healing; S52.512D Displaced fracture of left radial styloid process, subsequent encounter for closed fracture with routine healing; S43.004D Unspecified dislocation of right shoulder joint, subsequent encounter; W01.0XXD Fall on same level from slipping, tripping and stumbling without subsequent striking against object, subsequent encounter; R53.1 Weakness; D64.9 Anemia, unspecified; M06.9 Rheumatoid arthritis, unspecified; I10 Essential (primary) hypertension; R00.0 Tachycardia, unspecified; G56.00 Carpal tunnel syndrome, unspecified upper limb